=== PATIENT | female | born 2000 | race Caucasian/White ===

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

== ENCOUNTER 2018-03-03 17:11 | Emergency (ER) | payer MEDICAID ==
[~2018-03-03] VITALS: Ht 154.9 cm; Wt 93.9 kg
[2018-03-03 17:32] VITALS: Ht 154.9 cm; Wt 93.9 kg
[2018-03-03 19:04] VITALS: BP 95/65
== END 2018-03-03 19:04 | disposition home or self-care (01) ==
LOC: ED 17:11
DX: R21 Rash and other nonspecific skin eruption (principal); L29.9 Pruritus, unspecified